=== PATIENT | female | born 1985 | race Caucasian/White ===

== ENCOUNTER 2016-11-08 06:18 | Day surgery (SDC) | payer BC ==
[~2016-11-08] VITALS: Ht 157.5 cm; Wt 41.8 kg
[~2016-11-08 06:18] MED LIST: CeFAZolin 1 GM/DEXTROSE 50 ML IV ONE; LORazepam 2 MG/ML VIAL IVP PRN; SODIUM CHLORIDE 0.9% 1,000 ML IV ONE
[2016-11-08] MEDS ORDERED: SODIUM CHLORIDE 0.9% 1,000 ML IV ONE ×2 (06:30→13:14)
[2016-11-08 07:18] LABS: BASOPHILS # (AUTO) 0.02 K/uL (0.00-0.20); BASOPHILS % (AUTO) 0.8 % (0.0-2.0); EOSINOPHILS # (AUTO) 0.37 K/uL (0.00-0.70); EOSINOPHILS % (AUTO) 13.52 % (1.0-6.0); HEMATOCRIT 38.4 % (36-46); HEMOGLOBIN 12.9 g/dL (12.0-16.0); LYMPHOCYTES % (AUTO) 38.1 % (22.0-44.0); MEAN CORPUSCULAR HEMOGLOBIN 31.5 pg (26.0-34.0); MEAN CORPUSCULAR HGB CONC 33.5 G/dL (31.0-37.0); MEAN CORPUSCULAR VOLUME 94 fL (80-100); MONOCYTES # (AUTO) 0.3 K/uL (0.1-1.0); MONOCYTES % (AUTO) 9.3 % (2.0-9.0); NEUTROPHILS % (AUTO) 38.3 % (40.0-70.0); PLATELET COUNT (AUTO) 196 K/uL (150-450); RED BLOOD CELL COUNT(AUTO) 4.08 MIL/uL (4.00-5.20); RED CELL DISTRIBUTION WIDTH 12.7 % (11.5-14.5); WHITE BLOOD COUNT (AUTO) 2.7 K/uL (4.5-11.0)
[2016-11-08 07:27] LABS: ANION GAP 8 mmol/L (8-16); CARBON DIOXIDE 29 mmol/L (22-29); CHLORIDE 105 mmol/L (98-107); CREATININE 0.75 mg/dL (0.60-1.30); GLOMERULAR FILTR. RATE CALC > 60 mL/min (>60); POTASSIUM 4.7 mmol/L (3.5-5.1); SODIUM SERUM 142 mmol/L (136-145); UREA NITROGEN, BLOOD 14 mg/dL (7-18)
[2016-11-08] MEDS ORDERED: CeFAZolin 1 GM/DEXTROSE 50 ML IV ONE (07:30)
[2016-11-08] MEDS ORDERED: LORazepam 2 MG/ML VIAL ONE (07:31)
[2016-11-08 07:34] LABS: ALANINE AMINOTRANSFERASE 100 U/L (12-78); ALBUMIN 3.9 g/dL (3.4-5.0); ASPARTATE AMINOTRANSFERASE 51 U/L (15-37); BILIRUBIN,TOTAL 0.6 mg/dL (0.1-1.0); TOTAL PROTEIN, SERUM 6.8 g/dL (6.4-8.2)
[2016-11-08] MEDS ORDERED: LEVO50 PO (07:37)
[2016-11-08] MEDS ORDERED: LIDOCAINE HCL/PF 1% 30 ML VIAL ONE ×2 (07:46→08:52)
[2016-11-08] MEDS ORDERED: HEPARIN SODIUM 1000 UNITS/NS 500 ML ONE (07:47)
[2016-11-08] MEDS ORDERED: IOHEXOL 300 MG/ML 150 ML VIAL ONE (07:47)
[2016-11-08] MEDS ORDERED: IOHEXOL 300 MG/ML 100 ML VIAL ONE (07:48)
[2016-11-08 08:01] VITALS: BP 107/67
[2016-11-08] MEDS ORDERED: MIDAZOLAM HCL 2 MG/2 ML VIAL ONE ×2 (08:08→13:46)
[2016-11-08] MEDS ORDERED: FentaNYL CITRATE-PF 100 MCG/2 ML VIAL ONE ×2 (08:08→13:45)
[2016-11-08] MEDS ORDERED: VERAPAMIL HCL 2.5 MG/ML 2 ML VIAL ONE (08:40)
[2016-11-08] MEDS ORDERED: NITROGLYCERIN 50 MG/D5% WATER 250 ML ONE (08:41)
[2016-11-08 08:53] VITALS: BP 97/57
[2016-11-08] MEDS ORDERED: VERAPAMIL HCL 2.5 MG/ML 2 ML VIAL IARTER ONE (09:00)
[2016-11-08] MEDS ORDERED: FentaNYL CITRATE-PF 100 MCG/2 ML VIAL IVP ONE ×2 (09:00→09:45)
[2016-11-08] MEDS ORDERED: IOHEXOL 300 MG/ML 100 ML VIAL IARTER ONE (09:00)
[2016-11-08] MEDS ORDERED: NITROGLYCERIN/D5W 50 MG/250 ML IV BOTTLE IARTER ONE (09:00)
[2016-11-08] MEDS ORDERED: HEPARIN SODIUM,PORCINE 5,000 UNITS/ML VIAL IVP ONE (09:00)
[2016-11-08] MEDS ORDERED: MIDAZOLAM HCL 2 MG/2 ML VIAL IVP ONE (09:00)
[2016-11-08] MEDS ORDERED: LIDOCAINE HCL/PF 1% 30 ML VIAL INJ ONE (09:00)
[2016-11-08] MEDS ORDERED: HEPARIN SODIUM 1000 UNITS/NS 500 ML IV ONE (09:00)
[2016-11-08] MEDS ORDERED: IOHEXOL 240 MG/ML 50 ML VIAL ONE ×2 (10:08)
[2016-11-08] MEDS ORDERED: HEPARIN SODIUM,PORCINE 1,000 UNITS/ML 10 ML VIAL ONE (10:16)
[2016-11-08] MEDS ORDERED: SODIUM CHLORIDE 0.9% 1,000 ML IV SCH (12:54)
[2016-11-08] MEDS ORDERED: HYDROmorphone 2 MG/ML SYRINGE IVP PRN (13:00)
[2016-11-08] MEDS ORDERED: HYDROmorphone HCL 2 MG TABLET PO ONE (13:00)
[2016-11-08] MEDS ORDERED: OxyCODONE HCL/ACETAMINOPHEN 5-325 MG TABLET PO PRN ×2 (13:00)
[2016-11-08] MEDS ORDERED: LIDOCAINE HCL 1%/EPI 1:200,000/PF 10 ML VIAL ONE (13:47)
[2016-11-08] MEDS ORDERED: OxyCODONE HCL/ACETAMINOPHEN 5-325 MG TABLET ONE (14:19)
== END 2016-11-08 15:05 | disposition home or self-care (01) ==
LOC: SDS 06:18
PROVIDERS: ATTEND Radiology Diagnostic Radiology
DX: C50.912 Malignant neoplasm of unspecified site of left female breast (principal); Z98.890 Other specified postprocedural states; Z90.49 Acquired absence of other specified parts of digestive tract; Z85.71 Personal history of Hodgkin lymphoma; Z92.21 Personal history of antineoplastic chemotherapy
CPT/HCPCS: 36216; 36218; 36415; 37243; 75710; 75756; 76937; 80053; 84703; 85025; 99152; 99153; C1769 ×2; J0690; J1644 ×3; J2060; J2250; J3010; J3490 ×3; J7030; Q9966; Q9967; 36245